=== PATIENT | female | born 1980 | race American Indian/Alaskan Native ===

== ENCOUNTER 2017-05-12 18:14 | Emergency (ER) | payer OTHER ==
[2017-05-12 18:14] VITALS: BMI 21.5
[2017-05-12 18:32] VITALS: RESP 16; TEMP 99.5
--- NOTE | 2017-05-12 18:39 | ED PDOC ---
Arrival/HPI - General Chief Complaint: Lower Extremity Problem/Injury Time Seen by Provider: 05/12/17 18:21 Historian: Patient - History of Present Illness Narrative History of Present Illness (Text): 05/12/17 18:36 37-year-old female presents today with left ankle pain and swelling. Patient states 5 days ago she twisted her ankle while wearing heels and sustained an injury to the ankle. Patient states she is been icing the ankle and has used an Bib wrap without improvement in her symptoms. She is complaining of pain with ambulation. She denies numbness weakness or tingling in the extremity. Patient states majority of the pain is along the lateral aspect of the ankle. Time/Duration: Other Symptom Onset: Sudden (5 days ago) Symptom Course: Worsening Quality: Aching, Stabbing, Throbbing Severity Level: 5 Past Medical History - Provider Review Nursing Documentation Reviewed: Yes - Travel History Have you recently traveled outside [place] w/in the past 3 mons?: No - Infectious Disease Hx of Infectious Diseases: None - Tetanus Immunization Tetanus Immunization: Unknown - Past Medical History Past Medical History: No Previous - Neurological Hx Migraine: Yes - HEENT Hx HEENT Disorder: Yes (PHARYNGITIS 1 YEAR AGO) - Hematological/Oncological Hx Blood Disorders: Yes Hx Anemia: Yes - Genitourinary/Gynecological Hx Genitourinary Disorders: Yes (HEAVY MENSES) Other/Comment: IUD - Surgical History Hx Section: Yes (x2) Other/Comment: INSERTION IUD - Anesthesia Hx Anesthesia: Yes Hx Anesthesia Reactions: No Hx Malignant Hyperthermia: No - Suicidal Assessment Feels Threatened In Home Enviroment: No Family/Social History - Physician Review Nursing Documentation Reviewed: Yes Family/Social History: Unknown Family HX Smoking Status: Never Smoked Hx Alcohol Use: No Hx Substance Use Treatment: No Allergies/Home Meds Allergies/Adverse Reactions: Allergies No Known Allergies Allergy (Verified 12/31/16 07:21) Home Medications: Home Meds Medication Instructions Recorded Confirmed Acetaminophen/Butalbital/Caf 1 tab PO DAILY PRN 05/12/17 05/12/17 [Fioricet] Topiramate [Topamax] 1 tab PO DAILY 05/12/17 05/12/17 Review of Systems - Review of Systems Constitutional: absent: Fatigue, Fevers Respiratory: absent: SOB, Cough Cardiovascular: absent: Chest Pain, Palpitations Gastrointestinal: absent: Abdominal Pain, Diarrhea, Nausea, Vomiting Genitourinary Female: absent: Dysuria Musculoskeletal: Arthralgias (Left ankle pain) Skin: absent: Rash, Pruritis Neurological: absent: Headache, Dizziness Physical Exam Vital Signs Reviewed: Yes Vital Signs Temp Pulse Resp BP Pulse Ox 05/12/17 18:31 99.5 F 88 16 125/67 99 Temperature: Afebrile Blood Pressure: Normal Pulse: Regular Respiratory Rate: Normal Appearance: Positive for: Well-Appearing, Non-Toxic, Comfortable Pain Distress: None Mental Status: Positive for: Alert and Oriented X 3 - Systems Exam Head: Present: Atraumatic Respiratory/Chest: Present: Clear to Auscultation Cardiovascular: Present: Regular Rate and Rhythm Upper Extremity: Present: Normal Inspection Lower Extremity: Present: NORMAL PULSES, Tenderness (Left ankle: There is tenderness and swelling noted over the lateral malleolus. There is no proximal fibular tenderness. There is no calf tenderness. Limited ROM of ankle with pain) , Swelling, Neurovascularly Intact, Capillary Refill < 2 s. No: CALF TENDERNESS , Normal ROM, Erythema Neurological: Present: GCS=15 Skin: Present: Warm, Dry Psychiatric: Present: Alert, Oriented x 3 Medical Decision Making ED Course and Treatment: 05/12/17 18:39 Patient nontoxic well-appearing in no distress with stable vital signs X-rays of the left ankle; ? avulsion at base of fibula toradol IM Patient placed in short leg posterior splint, crutches given for ambulation. I discussed all results in depth with the patient advised to followup with the orthopedist within the next 2 days. Advised return if symptoms worsen persist or new symptoms develop Impression: Ankle fracture Motrin every 6 hours as needed for pain Rest, ice, compression, elevation Use crutches for ambulation Followup with the orthopedist within the next 2 days Followup with primary care physician within the next 2 days Return if symptoms worsen persist or if new symptoms develop - RAD Interpretation Radiology Orders: 05/12/17 18:34 ANKLE LEFT 3 VIEWS ROUTINE [RAD] Stat - Medication Orders Current Medication Orders: Discontinued Medications Ketorolac Tromethamine (Toradol) 30 mg IM STAT STA Stop: 05/12/17 18:35 Last Admin: 05/12/17 18:47 Dose: 30 mg Procedures - Splinting Location: left ankle Hand-Made Type: fiberglass Splint: short leg posterior splint Pre-Proc Neuro Vasc Exam: normal Post-Proc Neuro Vasc Exam: normal Disposition/Present on Arrival - Present on Arrival Any Indicators Present on Arrival: No History of DVT/PE: No History of Uncontrolled Diabetes: No Urinary Catheter: No History of Decub. Ulcer: No History Surgical Site Infection Following: None - Disposition Have Diagnosis and Disposition been Completed?: Yes Diagnosis: Ankle pain, Ankle fracture Disposition: HOME/ ROUTINE Disposition Time: 18:40 Patient Plan: Discharge Patient Problems: Current Active Problems Problem Status Onset Ankle fracture Acute Ankle pain Acute Condition: GOOD Discharge Instructions (ExitCare): Arthralgia (ED) Additional Instructions: Motrin every 6 hours as needed for pain Rest, ice, compression, elevation Use crutches for ambulation Followup with the orthopedist within the next 2 days Followup with primary care physician within the next 2 days Return if symptoms worsen persist or if new symptoms develop Prescriptions: Ibuprofen [Motrin] 600 mg PO Q6H PRN #20 tab PRN Reason: pain/fever reduction Referrals: Luis A Quinn III, MD [Medical Doctor] - Follow up with primary [facility] [Outside] - Follow up with primary Marc Barboza MD [Staff Provider] - Follow up with primary Forms: WORK NOTE
[2017-05-12 19:51] VITALS: BP 124/82; PULSE 82; O2SAT 100
--- NOTE | 2017-05-13 11:02 | RAD ---
PROCEDURE: Left Ankle Radiographs. HISTORY: ankle injury lateral aspect 5 days ago COMPARISON: None FINDINGS: BONES: No acute fracture. JOINTS: Normal. No osteoarthritis. Ankle mortise maintained. Talar dome intact SOFT TISSUES: Lateral soft tissue swelling without distal fibular fracture. OTHER FINDINGS: None. IMPRESSION: Soft tissue swelling without acute articular or osseous abnormality.
== END 2017-05-12 19:49 | disposition home or self-care (01) ==
LOC: ED 18:14
DX: S82.892A Other fracture of left lower leg, initial encounter for closed fracture (principal); X50.0XXA Overexertion from strenuous movement or load, initial encounter; Y93.89 Activity, other specified; Y92.89 Other specified places as the place of occurrence of the external cause
CPT/HCPCS: 73610; 96372; 99284; J1885

== ENCOUNTER 2017-10-22 07:11 | Emergency (ER) | payer OTHER ==
[2017-10-22 07:34] VITALS: BMI 22.2
--- NOTE | 2017-10-22 07:40 | ED PDOC ---
Arrival/HPI - General Chief Complaint: Lower Extremity Problem/Injury Time Seen by Provider: 10/22/17 07:19 Historian: Patient - History of Present Illness Narrative History of Present Illness (Text): 10/22/17 07:20 Aranza Caceres is a 37 year old female, who presents to the emergency department complaining of left ankle pain and swelling since two days ago. Patient reports on April after twisted her ankle she was diagnosed with two tore ligaments. Patient believes she twisted her ankle again two days ago which caused swelling and feels the pain shoots up. She notes usually wearing an ankle brace for support. No other complaints were made. PMD: Dr. Corbin Orthopedic: Dr. Templeton Time/Duration: < week Symptom Onset: Gradual Symptom Course: Unchanged Activities at Onset: Light Past Medical History - Provider Review Nursing Documentation Reviewed: Yes - Infectious Disease Hx of Infectious Diseases: None - Tetanus Immunization Tetanus Immunization: Unknown - Reproductive Menopause: No - Past Medical History Past Medical History: No Previous - Neurological Hx Migraine: Yes - HEENT Hx HEENT Disorder: Yes (PHARYNGITIS 1 YEAR AGO) - Hematological/Oncological Hx Blood Disorders: Yes Hx Anemia: Yes - Genitourinary/Gynecological Hx Genitourinary Disorders: Yes (HEAVY MENSES) Other/Comment: IUD - Psychiatric Hx Substance Use: No - Surgical History Hx Section: Yes (x2) Other/Comment: INSERTION IUD - Anesthesia Hx Anesthesia: Yes Hx Anesthesia Reactions: No Hx Malignant Hyperthermia: No - Suicidal Assessment Feels Threatened In Home Enviroment: No Family/Social History - Physician Review Nursing Documentation Reviewed: Yes Family/Social History: Unknown Family HX Smoking Status: Never Smoked Hx Alcohol Use: No Hx Substance Use: No Hx Substance Use Treatment: No Allergies/Home Meds Allergies/Adverse Reactions: Allergies No Known Allergies Allergy (Verified 10/22/17 07:27) Home Medications: Home Meds Medication Instructions Recorded Confirmed Ibuprofen [Motrin] 0 mg PO Q6H PRN 10/22/17 10/22/17 Review of Systems - Review of Systems Constitutional: absent: Fevers Eyes: absent: Vision Changes ENT: absent: Rhinorrhea Respiratory: absent: SOB Cardiovascular: absent: Chest Pain Gastrointestinal: absent: Abdominal Pain Genitourinary Female: absent: Dysuria, Frequency Musculoskeletal: Other (left ankle pain and swelling). absent: Back Pain Neurological: absent: Headache Endocrine: absent: Diaphoresis Physical Exam Vital Signs Reviewed: Yes Vital Signs Temp Pulse Resp BP Pulse Ox 10/22/17 09:16 98 F 98 H 20 118/71 100 10/22/17 07:28 99.2 F 92 H 16 123/77 99 10/22/17 07:12 97.9 F 113 H 20 101/66 100 Temperature: Afebrile Blood Pressure: Normal Pulse: Tachycardic Respiratory Rate: Normal Appearance: Positive for: Well-Appearing, Non-Toxic, Comfortable Pain Distress: None Mental Status: Positive for: Alert and Oriented X 3 - Systems Exam Head: Present: Atraumatic, Normocephalic Pupils: Present: PERRL Extroacular Muscles: Present: EOMI Conjunctiva: Present: Normal Lower Extremity: Present: NORMAL PULSES, Normal ROM, Tenderness ((+) left lateral ankle tenderness), Neurovascularly Intact, Capillary Refill < 2 s. No: Edema, CALF TENDERNESS, Deformity Neurological: Present: GCS=15, CN II-XII Intact, Speech Normal Skin: Present: Warm, Dry, Normal Color. No: Rashes Psychiatric: Present: Alert, Oriented x 3, Normal Insight, Normal Concentration Medical Decision Making ED Course and Treatment: 10/22/17 Impression: 37 year old female with left lateral ankle tenderness. NROM. Plan: -- Left ankle x-ray -- Motrin -- Reassess and disposition Progress Notes: 10/22/17 08:55 Left ankle x-ray Impression: X-ray was negative. Ankle was wrapped with an sarita wrap and a air cast splint was placed. Patient will follow up with PMD and orthopedic Dr. Templeton. Patient was also given crutches with instructions. - RAD Interpretation Radiology Orders: 10/22/17 07:27 ANKLE LEFT 3 VIEWS ROUTINE [RAD] Stat Loan [employer] Manager: ED Physician, Radiologist - Medication Orders Current Medication Orders: Discontinued Medications Ibuprofen (Motrin Tab) 600 mg PO STAT STA Stop: 10/22/17 07:29 Last Admin: 10/22/17 08:20 Dose: 600 mg MAR Pain/Vitals Document 10/22/17 08:20 GMI (Rec: 10/22/17 08:20 GMI [id number]) Pain Reassessment Is This A Pain ReAssessment? Yes Sleep Is patient sleeping during reassessment? No Presence of Pain Presence of Pain Yes - Scribe Statement The provider has reviewed the documentation as recorded by the Jackelyn Higgins Provider Scribe Attestation: All medical record entries made by the Scribe were at my direction and personally dictated by me. I have reviewed the chart and agree that the record accurately reflects my personal performance of the history, physical exam, medical decision making, and the department course for this patient. I have also personally directed, reviewed, and agree with the discharge instructions and disposition. Disposition/Present on Arrival - Present on Arrival Any Indicators Present on Arrival: No History of DVT/PE: No History of Uncontrolled Diabetes: No Urinary Catheter: No History of Decub. Ulcer: No History Surgical Site Infection Following: None - Disposition Have Diagnosis and Disposition been Completed?: Yes Diagnosis: Ankle sprain Disposition: HOME/ ROUTINE Disposition Time: 09:20 Patient Plan: Discharge Condition: IMPROVED Discharge Instructions (ExitCare): Ankle Sprain (ED) Additional Instructions: Ms Caceres, thank you for letting us take care of you today. Your provider was Dr. Le. You were treated for Ankle Sprain. The emergency medical care you received today was directed at your acute symptoms. If you were prescribed any medication, please fill it and take as directed. It may take several days for your symptoms to resolve. Return to the Emergency Department if your symptoms worsen, do not improve, or if you have any other problems. Please contact your doctor or call one of the physicians/clinics you have been referred to that are listed on the Patient Visit Information form that is included in your discharge packet. Bring any paperwork you were given at discharge with you along with any medications you are taking to your follow up visit. Our treatment cannot replace ongoing medical care by a primary care provider (PCP) outside of the emergency department. Thank you for allowing the [facility] [employer] team to be part of your care today. If you had an X-Ray or CT scan: A Radiologist will review the ED reading if any change in treatment is needed we will contact you. If you had a blood, urine, or wound culture: It will take several days for the results, if any change in treatment is needed we will contact you. If you had an STI test: It will take 48 hours for the results. Please call after 1 week if you have not heard back. Prescriptions: Ibuprofen [Motrin] 600 mg PO Q6 PRN #30 tab PRN Reason: Pain, Moderate (4-7) Referrals: Jn Corbin MD [Medical Doctor] - Follow up with primary Luis A Quinn III, MD [Medical Doctor] - Follow up with primary Forms: [email or web address] (Romanian)
[2017-10-22 09:17] VITALS: BP 118/71; PULSE 98; RESP 20; TEMP 98; O2SAT 100
--- NOTE | 2017-10-22 09:56 | RAD ---
PROCEDURE: Left Ankle Radiographs. HISTORY: Pain. Rule out fracture. COMPARISON: None FINDINGS: BONES: Normal. No fracture. JOINTS: Normal. No osteoarthritis. Ankle mortise maintained. Talar dome intact SOFT TISSUES: Normal. OTHER FINDINGS: None. IMPRESSION: Normal left ankle radiographs.
== END 2017-10-22 09:21 | disposition home or self-care (01) ==
LOC: ED 07:11
DX: S93.402A Sprain of unspecified ligament of left ankle, initial encounter (principal); X50.1XXA Overexertion from prolonged static or awkward postures, initial encounter

== ENCOUNTER 2018-02-16 13:14 | Emergency (ER) | payer OTHER ==
[2018-02-16 13:31] VITALS: BMI 22.4
[2018-02-16 13:36] VITALS: BP 108/69; PULSE 84; RESP 18; TEMP 98.9; O2SAT 99
[2018-02-16] MEDS ORDERED: TDAP Vaccine 0.5 mL Syr IM ONE (13:52)
[2018-02-16] MEDS ORDERED: Bacitracin 500 Units/gm Oint Foilpak UD TOP ONE (13:53)
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
[2018-02-16 14:22] LABS: BASO # 0.01 K/mm3 (0.0-2.0); BASO % 0.3 % (0.0-3.0); EOS % 0.5 % (1.5-5.0); GRAN # 1.7 (1.4-6.5); GRAN % 46.6 % (50.0-68.0); HEMOGLOBIN 14.2 g/dL (12.0-16.0); LYMPH # 1.6 (1.2-3.4); LYMPH % 44.7 % (22.0-35.0); MEAN CELL VOLUME 92.6 fl (80.0-105.0); MEAN CORPUSCULAR HEMOGLOBIN 31.8 pg (25.0-35.0); MEAN CORPUSCULAR HGB CONC 34.4 g/dl (31.0-37.0); MEAN PLATELET VOLUME 9.2 fl (7.0-11.0); MONO # 0.3 (0.1-0.6); MONO % 7.9 % (1.0-6.0); RBC 4.46 10^6/uL (3.5-6.1); RED CELL DISTRIBUTION WIDTH 13.7 % (11.5-14.5); WHITE BLOOD COUNT 3.7 10^3/ul (4.5-11.0)
[2018-02-16 14:33] LABS: ALB/GLOB RATIO 1.2 (1.1-1.8); ALBUMIN 4.5 g/dL (3.0-4.8); ALT/SGPT 30 U/L (7-56); AMYLASE 70 U/L (35-125); AST/SGOT 22 U/L (14-36); BLOOD UREA NITROGEN 14 mg/dL (7-21); CALCIUM 9.5 mg/dL (8.4-10.5); GFR AFRICAN-AMERICAN > 60; GFR NON-AFRICAN AMERICAN > 60
[2018-02-16 20:54] LABS: HEPATITIS B SURFACE AG Negative (NEGATIVE)
[2018-02-16 20:59] LABS: HEPATITIS A IGM NEGATIVE (NEGATIVE); HEPATITIS B CORE AB NEGATIVE (NEGATIVE)
[2018-02-16 21:12] LABS: HEPATITIS C ANTIBODY NEGATIVE (NEGATIVE)
== END 2018-02-16 14:10 | disposition home or self-care (01) ==
LOC: ED 13:14
DX: S50.811A Abrasion of right forearm, initial encounter (principal); Y08.89XA Assault by other specified means, initial encounter; Y93.F9 Activity, other caregiving; Y92.239 Unspecified place in hospital as the place of occurrence of the external cause; Y99.0 Civilian activity done for income or pay; Z23 Encounter for immunization